=== PATIENT | male | born 1985 ===

== ENCOUNTER 2018-07-07 16:37 | Emergency (ER) | payer SELFPAY ==
[2018-07-07 16:39] VITALS: O2SAT 98
[2018-07-07 16:40] VITALS: BMI 26.6
[2018-07-07] MEDS ORDERED: Tdap Vaccine 0.5 ml Vial (10-64 yrs) IM ONE (16:40)
[2018-07-07] MEDS ORDERED: Lidocaine 2% w Epi 1:100,000 Inj IJ ONE ×2 (16:41→16:46)
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
--- NOTE | 2018-07-07 17:35 | CT ---
Date of service: 07/07/2018 PROCEDURE: CT HEAD WITHOUT CONTRAST. HISTORY: head injury etoh COMPARISON: None available. TECHNIQUE: Axial computed tomography images were obtained through the head/brain without intravenous contrast. Radiation dose: Total exam DLP = 876.24 mGy-cm. This CT exam was performed using one or more of the following dose reduction techniques: Automated exposure control, adjustment of the mA and/or kV according to patient size, and/or use of iterative reconstruction technique. FINDINGS: HEMORRHAGE: No intracranial hemorrhage. BRAIN: No mass effect or edema. No cortical effacement is seen. No extra-axial subdural hematoma is noted on subdural windows. No sellar masses are noted. No tonsillar ectopia is seen. VENTRICLES: Unremarkable. No hydrocephalus. CALVARIUM: Unremarkable. PARANASAL SINUSES: Unremarkable as visualized. No significant inflammatory changes. MASTOID AIR CELLS: Unremarkable as visualized. No inflammatory changes. OTHER FINDINGS: Right frontoparietal scalp soft tissue swelling is seen. Is IMPRESSION: No evidence of intracranial hemorrhage. Right frontoparietal scalp swelling.
[2018-07-07 18:52] VITALS: BP 122/69; PULSE 92; RESP 18; TEMP 97.7
== END 2018-07-07 18:59 | disposition home or self-care (01) ==
LOC: H.ER 16:37
DX: S01.01XA Laceration without foreign body of scalp, initial encounter (principal); W19.XXXA Unspecified fall, initial encounter; Y92.89 Other specified places as the place of occurrence of the external cause